=== PATIENT | female | born 1955 | race Caucasian/White ===

== ENCOUNTER 2019-08-05 08:59 | Outpatient (CLI) | payer OTHER ==
[~2019-08-05 08:59] MED LIST: CHOL200040 PO; CYAN10002 HOMEINJ; DIAZ10TA PO; ESCI10TA10 PO; ESTR1.25 PO; GABA300C10 PO; LEVO100T PO; LIOT5TAB11 PO; OMEG-14 PO
[2019-08-05] MEDS ORDERED: ESCI20TA10 PO (14:49)
[2019-08-05] MEDS ORDERED: DIAZ10TA PO ×2 (14:49)
[2019-08-05] MEDS ORDERED: LEVO125T PO (14:49)
[2019-08-05] MEDS ORDERED: LIOT5TAB10 PO (14:49)
== END 2019-08-05 23:59 | disposition home or self-care (01) ==
LOC: STAR 08:59
PROVIDERS: ATTEND Surgery
DX: Z01.818 Encounter for other preprocedural examination (principal); Z11.59 Encounter for screening for other viral diseases
CPT/HCPCS: 93005; U0001